=== PATIENT | male | born 1945 | race Caucasian/White ===

== ENCOUNTER → 2016-11-13 | Outpatient (CLI) | payer MEDICARE ==
[~2016-11-13] VITALS: Ht 180.3 cm; Wt 85.7 kg
[~2016-11-13] MED LIST: ASPI-110 PO; CENTTAB PO; CHLORHEXIDINE GLUCONATE 2 % 1 PACK (2 CLOTHS) TOPICAL PRN; CHOL50008 PO; CYAN1TAB22 PO; DEXTROSE 5% IN WATE 1000ML INJ 1,000 ML IV SCH; ESTE500T4 PO; FINA5TAB2 PO; FLAX1200 PO; INSULIN HUMAN REGULAR 1,000 UNITS/10 ML VIAL SQ PRN; LACTATED RINGER'S 1000 ML IV PRN; LECI1200 PO; LORA-373 PO; METOPROLOL TARTRATE 25 MG TAB PO PRN; NIAC500C4 PO; POVIDONE IODINE 5% (ANTISEPSIS KIT) 4 APPLICATIONS EACH NARE PRN; PROPOFOL 200 MG/20 ML AMP IV ONE; SAW160TA PO; SODIUM CHLORID 0.9% 500 ML IV PRN; TAMS0.4C4 PO; TAUR500C PO; [UNRECOGNIZED DRUG - CODE]
[2016-11-13 14:13] VITALS: BP 133/71; PULSE 70; RESP 18; TEMP 98.2; O2SAT 96
[2016-11-13 15:57] VITALS: TEMP 97.5
[2016-11-13 16:20] VITALS: BP 136/72; PULSE 70; RESP 16; O2SAT 97
--- NOTE | 2016-11-14 14:22 | EKG ---
Date Performed: 11/13/2016 Time Performed: 13:55:20 PTAGE: 70 years EKG: Sinus rhythm NORMAL ECG NO PREVIOUS TRACING DOCTOR: Derrek Monroe Interpretating Date/Time 11/14/2016 14:21:43
--- NOTE | 2016-11-14 18:12 | MR ---
cc: JJ ANTOINE JOHN T. M.D. DATE 11/14/16 PREOPERATIVE DIAGNOSIS Past history of colon polyps. POSTOPERATIVE DIAGNOSIS Past history of colon polyps. PROCEDURE Total colonoscopy. ANESTHESIA Monitored anesthesia care SURGEON Dr. Ocampo OPERATIVE FINDINGS This patient has a past history of colon polyps, for this reason colonoscopy was recommended. At colonoscopy no polyps or other mucosal lesions were seen other than extensive sigmoid diverticulosis. The prep was excellent. OPERATIVE TECHNIQUE The patient was placed on table in the left lateral position, given intravenous monitored anesthesia care and the colonoscope was introduced through the anal canal through the rectum, sigmoid colon, descending and transverse colon, ascending colon to the cecum. The ileocecal valve was seen as well as base of the appendix. Scope was sequentially withdrawn to circumferentially look at the mucosa. Getting a good look at the mucosa the prep was excellent. He had sigmoid diverticulosis fairly extensively but the remainder of the colon was normal. Scope was eventually withdrawn. The patient tolerated the procedure well and left the GI lab in good condition. He should have repeat colonoscopy in 5 years' time. Garry Ocampo MD JTT/SUZANNE /3:58 PM /6:01 PM
== END ==
LOC: HEND 13:19
PROVIDERS: ATTEND Colon & Rectal Surgery
DX: Z12.11 Encounter for screening for malignant neoplasm of colon (principal); Z83.71 Family history of colonic polyps; Z86.010 Personal history of colon polyps; K57.30 Diverticulosis of large intestine without perforation or abscess without bleeding; Z01.810 Encounter for preprocedural cardiovascular examination
CPT/HCPCS: 00810; 45380; 93005; J7120